=== PATIENT | female | born 1965 | race Caucasian/White ===

== ENCOUNTER → 2017-11-10 | Outpatient (CLI) | payer OTHER ==
[~2017-11-10] MED LIST: ASCO100029 PO; ASPI81TA23 PO; CALC1TAB87 PO; CYAN1TAB27 PO
[2017-11-10 14:35] LABS: BASOPHIL % 0.5 % (0.0-2.0); EOSINOPHIL # 0.2 TH/MM3 (0-0.4); EOSINOPHIL % 1.9 % (0.0-4.0); HEMATOCRIT 40.1 % (35.0-46.0); HEMOGLOBIN 13.6 GM/DL (11.6-15.3); LYMPH % 31.6 % (9.0-44.0); LYMPHOCYTE # 2.6 TH/MM3 (1.0-4.8); MEAN CELL VOLUME 91.5 FL (80.0-100.0); MEAN CORPUSCULAR HGB CONC 33.9 % (32.0-36.0); MEAN PLATELET VOLUME 7.8 FL (7.0-11.0); MONO % 5.3 % (0.0-8.0); MONOCYTE # 0.4 TH/MM3 (0-0.9); NEUT % 60.7 % (16.0-70.0); PLATELET COUNT 357 TH/MM3 (150-450); RED BLOOD COUNT 4.38 MIL/MM3 (4.00-5.30); RED CELL DISTRIBUTION WIDTH 13.1 % (11.6-17.2); WHITE BLOOD COUNT 8.2 TH/MM3 (4.0-11.0)
--- NOTE | 2017-11-10 14:46 | RADRPT ---
EXAM DATE/TIME: 11/10/2017 14:38 [place] COMPARISON: No previous studies available for comparison. INDICATIONS : Evaluate for pneumonia, pneumothorax, and communicable diseases. Pre-op cervical biopsies. MEDICAL HISTORY : None. SURGICAL HISTORY : None. ENCOUNTER: Initial ACUITY: 1 day PAIN SCORE: 0/10 LOCATION: Bilateral chest FINDINGS: PA and lateral views of the chest demonstrate the lungs to be symmetrically aerated without evidence of mass, infiltrate or effusion. The cardiomediastinal contours are unremarkable. Osseous structure s are intact. CONCLUSION: Normal examination. Cash Khan MD on November 10, 2017 at 14:44 Board Certified Radiologist. This report was verified electronically.
[2017-11-10 15:07] LABS: ALBUMIN 4.1 GM/DL (3.4-5.0); ALT (GPT) 17 U/L (10-53); AST (GOT) 17 U/L (15-37); BICARBONATE 28.7 MEQ/L (21.0-32.0); BLOOD UREA NITROGEN 12 MG/DL (7-18); CALCIUM 8.8 MG/DL (8.5-10.1); CHLORIDE 105 MEQ/L (98-107); CREATININE 0.66 MG/DL (0.50-1.00); GLOMERULAR FILTRATION RATE 94 ML/MIN (>89); GLUCOSE,FASTING 87 MG/DL (74-99); SODIUM (NA) 141 MEQ/L (136-145)
[2017-11-10 15:08] LABS: ALKALINE PHOSPHATASE 63 U/L (45-117); TOTAL BILIRUBIN ADULT 0.4 MG/DL (0.2-1.0); TOTAL PROTEIN 7.9 GM/DL (6.4-8.2)
[2017-11-10 15:37] LABS: PROTHROMBIN TIME - PATIENT 10.3 SEC (9.8-11.6)
--- NOTE | 2017-11-11 13:06 | EKG ---
Date Performed: 11/10/2017 Time Performed: 13:49:02 PTAGE: 52 years EKG: Sinus rhythm Normal ECG NO PREVIOUS TRACING DOCTOR: Omar Kaye Interpretating Date/Time 11/11/2017 13:05:02
== END ==
LOC: CPRE 13:24
PROVIDERS: ATTEND Obstetrics & Gynecology Gynecologic Oncology
DX: Z01.812 Encounter for preprocedural laboratory examination (principal); Z01.811 Encounter for preprocedural respiratory examination; Z01.810 Encounter for preprocedural cardiovascular examination; R87.619 Unspecified abnormal cytological findings in specimens from cervix uteri
CPT/HCPCS: 36415; 71046; 80053; 85025; 85610; 85730; 86304; 93005

== ENCOUNTER → 2017-11-14 | Day surgery (SDC) | payer OTHER ==
[~2017-11-14] VITALS: Ht 168.9 cm; Wt 62.2 kg
[~2017-11-14] MED LIST changes: +ACETAMINOPHEN 1000 MG/100 ML 100 ML IV ONE; +CHLORHEXIDINE GLUCONATE 2 % 1 PACK (2 CLOTHS) TOPICAL PRN; +DEXAMETHASONE SOD PHOS 4 MG/ML VIAL IV ONE; +DO NOT ADM ANY ANTICOAGULANT DRUGS PRN; +INSULIN HUMAN REGULAR 1,000 UNITS/10 ML VIAL SQ PRN; +KETOROLAC TROMETHAMINE 30 MG/ML (IVP) VIAL IV PUSH ONE; +KETOROLAC TROMETHAMINE 30 MG/ML (IVP) VIAL IV PUSH PRN; +LACTATED RINGER'S 1000 ML INJ 1,000 ML IV ONE; +LACTATED RINGER'S 1000 ML IV PRN; +LIDOCAINE 0.5%/EPINEPHrine 1:200,000 SOLN 50 ML VIAL ONE; +LIDOCAINE HCL 1% PF 5 ML SYRINGE OTHER ONE; +METOPROLOL TARTRATE 25 MG TAB PO PRN; +MIDAZOLAM HCL 2 MG/2 ML VIAL ONE; +ONDANSETRON HCL 4 MG/2 ML VIAL IV ONE; +POVIDONE IODINE 5% (ANTISEPSIS KIT) 4 APPLICATIONS EACH NARE PRN; +PROPOFOL 200 MG/20 ML AMP IV ONE; +SODIUM CHLORID 0.9% 500 ML IV PRN; +oxyCODONE/ACETAMINOPHEN 5 MG/325 MG TAB PO PRN
[2017-11-14 18:20] VITALS: BP 113/70; PULSE 62; RESP 16; TEMP 98.3; O2SAT 100
--- NOTE | 2017-11-15 10:03 | MP ---
cc: JORDYN KIDD M.D.,LENO JULES,YAJAIRA Kathleen MD DATE OF SURGERY 11/14/2017 PREOPERATIVE DIAGNOSIS Thickened endocervix on imaging. POSTOPERATIVE DIAGNOSES Thickened endocervix on imaging. PROCEDURE Examination under anesthesia, fractional dilation and curettage, cervix biopsy. SURGEON Yajaira Jules. 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 ANESTHESIA Laryngeal mask anesthesia. ESTIMATED BLOOD LOSS Less than 20 cc. HISTORY This is a 52-year-old female who was undergoing an overall health evaluation, prompted in part by an elevated CEA value between 11 and 12. Thus far her work-up has been negative for any overt evidence of malignancy, but pelvic ultrasound showed what looked like a prominent thickening to the endocervical canal. 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 She had a Pap smear not too long ago that was normal. We talked about the possibility of an occult abnormality and discussed options and agreed upon exam under anesthesia, fractional dilation and curettage and possible additional biopsies. She is seen again in the pre-op holding area where the findings and recommended plan are discussed. The procedure is reviewed. Questions were answered. She expressed good understanding and agrees to move forward with diagnostic surgical procedure. FINDINGS On exam under anesthesia there are no appreciably enlarged inguinal lymph nodes. External genitalia without mass or lesion. The cervix grossly appears normal. The uterus and cervix are mobile. There is no obvious parametrial mass or nodularity. The uterine cavity sounds to 8 cm, retroverted. The cervical os had some difficulty in dilating. There seems to be an almost circumferential band of scar tissue at the level of the internal os. There seems to be nodularity in the submucosal area, perhaps a small leiomyoma, on the left side at the level of the internal cervical os. Curetting of the uterus and curetting of the endocervical canal, however, yields a scant amount of tissue. There is no obvious mass or polyp or other abnormality within the endocervical canal. Similarly, thorough curetting of the endometrium reveals a small amount of tissue. There are some small polypoid fragments that were removed from the anterior uterine wall. At the end of curetting all surfaces were gritty. In an effort to further evaluate the palpable small prominence in the endocervical canal a biopsy was taken from the cervix at the 3 o'clock position, that was actually within the endocervical canal and the wall of the cervix at that level. DETAILS OF PROCEDURE She was taken to the operating room and placed in dorsal lithotomy position. After laryngeal mask anesthesia was administered a timeout was undertaken. She was identified by sight recognition and hospital ID silke and the proposed procedure was reviewed and confirmed. She was carefully positioned in lithotomy position. Exam under anesthesia was performed with findings as described above. She was prepped and draped in sterile fashion with in and out catheterization of the bladder. The cervix was grasped. A lacrimal probe was used to initiate dilation and then graduated dilators were used to dilate the cervix with a very tight circumferential internal os ring suggesting the possibility of some scar tissue, and the small nodule at the 3 o'clock position within the wall of the cervix as noted clinically suggestive of possibly a small leiomyoma. After the cervix was dilated vigorous circumferential curetting was performed with multiple passes. All of the curettings were combined as endocervical curetting. Next, the cervix was further dilated to allow a medium curette where vigorous multifocal multiple passes of curetting were used obtaining a small amount of tissue as described above. Next, biopsy was taken at the 3 o'clock position of the cervix within the wall adjacent to the endocervical canal where there was some subtle palpable nodularity. This was labeled as cervix biopsy 3 o'clock. The biopsy site was rendered hemostatic with topical Monsel's which was also applied to the tenaculum spots and rendered the site completely hemostatic. There were no remaining foreign objects in the vagina. Preliminary and final counts were correct. She was returned to dorsal supine position and was pending reversal of anesthesia when I left the operating room to precede her to the post-anesthesia care unit. MD SOLITARIO Dowd/CARLOS /8:20 AM /9:42 AM
== END | disposition home or self-care (01) ==
LOC: HSDC 11:31
PROVIDERS: ATTEND Obstetrics & Gynecology Gynecologic Oncology
DX: R87.619 Unspecified abnormal cytological findings in specimens from cervix uteri (principal); R97.0 Elevated carcinoembryonic antigen [CEA]
CPT/HCPCS: 00940; 58120; 86850; 86900; 86901; 88305; J0131; J1100; J1885; J2250; J2405; J3010; J7120